=== PATIENT | female | born 1985 | race Hispanic/Latino ===

== ENCOUNTER 2019-01-12 18:45 | Emergency (ER) | payer OTHER ==
[2019-01-12 19:06] VITALS: BP 105/72; PULSE 89; RESP 21; TEMP 97.7; O2SAT 99
--- NOTE | 2019-01-12 20:13 | C.PDOC ---
History Of Present Illness 33 y/o F p/w alcohol intoxication. Patient drank alcohol, went to therapist as part of her disability income requirements, therapist saw that patient was intoxicated and sent patient to hospital and rescheduled. Patient denies any medical complaints. Denies chest pain, dyspnea, cough, fever, vomiting, dysuria. Does not want detox. Time Seen by Provider: 01/12/19 19:21 Chief Complaint (Nursing): Substance Abuse Past Medical History Vital Signs: Last Vital Signs Temp 97.7 F 01/12/19 18:53 Pulse 89 01/12/19 18:53 Resp 21 01/12/19 18:53 BP 105/72 01/12/19 18:53 Pulse Ox 99 01/12/19 18:53 - Medical History PMH: Anxiety, Depression Family History: States: No Known Family Hx - Social History Hx Alcohol Use: Yes Hx Substance Use: No - Immunization History Hx Tetanus Toxoid Vaccination: Yes Hx Influenza Vaccination: No Hx Pneumococcal Vaccination: No Review Of Systems Except As Marked, All Systems Reviewed And Found Negative. Constitutional: Negative for: Fever Cardiovascular: Negative for: Chest Pain Physical Exam - Physical Exam Additional Physical Exam Comments: gen nad, intoxicated head nc/at eyes no icterus ent mmm chest no deformity cv reg rate lungs no acc muscle use abd soft extremities no swelling skin no rash neuro alert ED Course And Treatment O2 Sat by Pulse Oximetry: 99 Medical Decision Making Medical Decision Making: Mother at bedside feels comfortable taking patient home and states she is staying with her tonight and tomorrow. Disposition - Disposition Disposition: HOME/ ROUTINE Disposition Time: 19:47 Condition: GOOD Instructions: Alcohol Abuse and Alcoholism (DC) - Clinical Impression Clinical Impression: Alcohol intoxication
== END 2019-01-12 20:11 | disposition home or self-care (01) ==
LOC: C.ER 18:45
DX: F10.129 Alcohol abuse with intoxication, unspecified (principal); Y90.9 Presence of alcohol in blood, level not specified